=== PATIENT | male | born 1995 | race Caucasian/White ===

== ENCOUNTER 2017-01-15 01:07 | Emergency (ER) | payer MEDICAID ==
[~2017-01-15] VITALS: Ht 167.6 cm; Wt 61.8 kg
[2017-01-15 01:08] VITALS: BP 121/72
== END 2017-01-15 02:48 | disposition home or self-care (01) ==
LOC: ED 02:44
DX: Z76.1 Encounter for health supervision and care of foundling (principal)
CPT/HCPCS: 99281

== ENCOUNTER 2017-05-17 13:31 | Emergency (ER) | payer MEDICAID ==
[~2017-05-17] VITALS: Ht 170.2 cm; Wt 64.6 kg
[2017-05-17 13:55] VITALS: BP 100/65
== END 2017-05-17 14:23 | disposition home or self-care (01) ==
LOC: ED 14:15
DX: L02.11 Cutaneous abscess of neck (principal); F17.210 Nicotine dependence, cigarettes, uncomplicated
CPT/HCPCS: 99281

== ENCOUNTER 2017-06-11 07:49 | Emergency (ER) | payer MEDICAID ==
[~2017-06-11] VITALS: Ht 172.7 cm; Wt 61.0 kg
[2017-06-11 08:23] VITALS: BP 143/98
[2017-06-11] MEDS ORDERED: MAALOX/HYOSCYAMINE/LIDOCAINE 45 ML BTL ONE (08:25)
[2017-06-11] MEDS ORDERED: ONDANSETRON 2MG/ML, 2ML ONE (08:25)
[2017-06-11] MEDS ORDERED: PANTOPRAZOLE 40 MG IV ONE (08:25)
[2017-06-11] MEDS ORDERED: FAMOTIDINE 20 MG/2 ML ONE (08:25)
[2017-06-11] MEDS ORDERED: LORazepam 2 MG/ML, 1ML ONE (08:27)
[2017-06-11] MEDS ORDERED: PANTOPRAZOLE 40 MG IV IVP ONE (08:30)
[2017-06-11] MEDS ORDERED: SODIUM CHLORIDE 0.9% 1,000ML IVBOLUS ONE (08:30)
[2017-06-11] MEDS ORDERED: ONDANSETRON 2MG/ML, 2ML IVPush ONE (08:30)
[2017-06-11] MEDS ORDERED: SODIUM CHLORIDE FLUSH 10ML SYR IVF ONE (08:30)
[2017-06-11 08:31] LABS: HEMATOCRIT 48.2 % (39.2-51.8); HEMOGLOBIN 16.8 g/dL (13.7-18.0); WHITE BLOOD COUNT 13.1 x10^3/uL (3.4-10)
[2017-06-11 08:42] LABS: ASPARTATE AMINO TRANSFERASE 18 U/L (15-37); BLOOD UREA NITROGEN 11 mg/dL (7-18)
[2017-06-11] MEDS ORDERED: FAMOTIDINE 20 MG/2 ML IVP ONE (09:00)
[2017-06-11] MEDS ORDERED: MAALOX/HYOSCYAMINE/LIDOCAINE 45 ML BTL PO ONE (09:00)
[2017-06-11] MEDS ORDERED: LORazepam 2 MG/ML, 1ML IVPush ONE (09:00)
== END 2017-06-11 09:34 | disposition home or self-care (01) ==
LOC: ED 09:12
DX: K22.6 Gastro-esophageal laceration-hemorrhage syndrome (principal); K29.71 Gastritis, unspecified, with bleeding; F10.20 Alcohol dependence, uncomplicated
CPT/HCPCS: 36415; 80053; 85025; 96361; 96374; 96375; 99284; C9113; J2060; J2405; J7030; S0028

== ENCOUNTER 2017-07-02 12:35 | Emergency (ER) | payer MEDICAID ==
[~2017-07-02] VITALS: Ht 177.8 cm; Wt 86.5 kg
[2017-07-02 12:38] VITALS: BP 132/80
[2017-07-02 12:56] LABS: HEMOGLOBIN 17.1 g/dL (13.7-18.0); WHITE BLOOD COUNT 7.1 x10^3/uL (3.4-10)
[2017-07-02] MEDS ORDERED: ONDANSETRON ODT 4 MG PO ONE (13:00)
[2017-07-02] MEDS ORDERED: FAMOTIDINE 20 MG TABLET PO ONE (13:00)
[2017-07-02] MEDS ORDERED: FAMOTIDINE 20 MG TABLET ONE (13:03)
[2017-07-02] MEDS ORDERED: ONDANSETRON ODT 4 MG ONE (13:04)
[2017-07-02 13:09] LABS: BLOOD UREA NITROGEN 16 mg/dL (7-18)
[2017-07-02 13:10] LABS: ASPARTATE AMINO TRANSFERASE 16 U/L (15-37)
== END 2017-07-02 14:19 | disposition home or self-care (01) ==
LOC: ED 14:11
DX: K29.20 Alcoholic gastritis without bleeding (principal); F15.10 Other stimulant abuse, uncomplicated; F10.10 Alcohol abuse, uncomplicated; F17.200 Nicotine dependence, unspecified, uncomplicated
CPT/HCPCS: 36415; 80053; 83690; 85025; 99284; Q0162

== ENCOUNTER 2017-10-30 10:23 | Emergency (ER) | payer MEDICAID ==
[~2017-10-30] VITALS: Ht 170.2 cm; Wt 75.4 kg
[2017-10-30 10:27] VITALS: BP 132/77
[2017-10-30] MEDS ORDERED: CEFTRIAXONE 250 MG IM ONE (12:00)
[2017-10-30] MEDS ORDERED: AZITHROMYCIN 500 MG TABLET PO ONE (12:00)
[2017-10-30] MEDS ORDERED: CEFTRIAXONE 250 MG ONE (12:04)
[2017-10-30] MEDS ORDERED: LIDOCAINE-MPF 1%, 2ML ONE (12:04)
[2017-10-30] MEDS ORDERED: AZITHROMYCIN 250 MG TABLET ONE (12:04)
== END 2017-10-30 12:49 | disposition home or self-care (01) ==
LOC: ED 12:08
DX: A54.6 Gonococcal infection of anus and rectum (principal)
CPT/HCPCS: 87491; 87591; 96372; 99284; J0696

== ENCOUNTER 2018-03-25 09:21 | Emergency (ER) | payer MEDICAID ==
[~2018-03-25] VITALS: Ht 170.2 cm; Wt 84.2 kg
[2018-03-25 09:23] VITALS: BP 117/80
== END 2018-03-25 09:54 | disposition home or self-care (01) ==
LOC: ED 09:46
DX: L72.3 Sebaceous cyst (principal); F17.210 Nicotine dependence, cigarettes, uncomplicated
CPT/HCPCS: 99283

== ENCOUNTER 2018-12-02 19:33 | Emergency (ER) | payer MEDICAID ==
[~2018-12-02] VITALS: Ht 170.2 cm; Wt 82.6 kg
[2018-12-02 19:41] VITALS: BP 118/76
[2018-12-02] MEDS ORDERED: LIDOCAINE-MPF 1%, 5ML INFIL ONE (20:00)
[2018-12-02] MEDS ORDERED: LIDOCAINE-MPF 1%, 5ML ONE (20:38)
== END 2018-12-02 21:12 | disposition home or self-care (01) ==
LOC: ED 21:05
DX: L03.221 Cellulitis of neck (principal); Z72.9 Problem related to lifestyle, unspecified
CPT/HCPCS: 99283

== ENCOUNTER 2019-11-20 16:26 | Emergency (ER) | payer MEDICAID ==
[~2019-11-20] VITALS: Ht 172.7 cm; Wt 87.1 kg
[2019-11-20 16:46] VITALS: BP 128/81
--- NOTE | 2019-11-20 16:49 | NUR ---
FIRST CONTACT WITH PT. PT SITTING UP IN [facility] NOTED. PT REPORTS "MY ESOPHAGUS IS MESSED UP" X ONE WEEK. "I THINK IT STARTED AFTER I SMOKED A CIGAR". LIMITED FOOD INTAKE, "IT MAKES ME GAG", BUT IS ABLE TO TAKE PO FLUIDS WO DIFFICULTY. PT SPEAKING WITH EASE. AIRWAY PATENT, PT MANAGING OWN SECRETIONS. NO EVIDENCE OF FB. DENIES PAIN/N/V. BP/SPO2 MONITORING IN PLACE.
[2019-11-20] MEDS ORDERED: MAALOX/HYOSCYAMINE/LIDOCAINE 45 ML BTL ONE (17:27)
[2019-11-20] MEDS ORDERED: MAALOX/HYOSCYAMINE/LIDOCAINE 45 ML BTL PO ONE (17:30)
--- NOTE | 2019-11-20 17:30 | NUR ---
DC EDUCATION PROVIDED, PT DEMONSTRATES UNDERSTANDING. PT AMBULATED STEADILY TO DC WITH RN.
== END 2019-11-20 18:01 | disposition home or self-care (01) ==
LOC: ED 17:50
DX: K29.00 Acute gastritis without bleeding (principal); R63.8 Other symptoms and signs concerning food and fluid intake
CPT/HCPCS: 99283